=== PATIENT | female | born 1940 | race Caucasian/White ===

== ENCOUNTER 2023-07-08 17:50 | Emergency (ER) | payer MEDICARE, OTHER ==
[~2023-07-08] VITALS: Ht 157 cm; Wt 79.4 kg
[2023-07-08 18:10] LABS: BASOPHILS % (AUTO) 1 % (0-10); EOSINOPHILS # (AUTO) 0.1 10^3/uL (0.0-0.3); EOSINOPHILS % (AUTO) 1 % (0-10); HEMATOCRIT 39 % (35-52); HEMOGLOBIN 12.9 g/dL (11.5-16.0); LYMPHOCYTES # (AUTO) 1.4 10^3/uL (1.0-4.0); LYMPHOCYTES % (AUTO) 20 % (12-44); MEAN CORPUSCULAR HEMOGLOBIN 29 pg (25-34); MEAN CORPUSCULAR HGB CONC 33 g/dL (32-36); MEAN CORPUSCULAR VOLUME 89 fL (80-99); MEAN PLATELET VOLUME 10.4 fL (9.0-12.2); MONOCYTES # (AUTO) 0.4 10^3/uL (0.0-1.0); MONOCYTES % (AUTO) 6 % (0-12); NEUTROPHILS % (AUTO) 71 % (42-75); PLATELET COUNT 250 10^3/uL (130-400)
[2023-07-08] MEDS ORDERED: FAMOTIDINE 20 MG TABLET PO STA (18:11)
--- NOTE | 2023-07-08 18:11 | ED GI ---
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 This occurred at 2:20 PM today. She denies any real chest pain, shortness of breath, focal weakness or numbness, headache, vertigo, fever, diarrhea, or any other concerns. This is never really ever happened before. She specifically denies any cardiac history. This was a very brief moment that lasted less than a minute, and she was normal afterwards. Allergies and Home Medications Allergies Coded Allergies: No Known Drug Allergies (Unverified , 07/08/23) Patient Home Medication List Home Medication List Reviewed: Yes Review of Systems Review of Systems Constitutional: No fever EENTM: No Symptoms Reported Respiratory: No Symptoms Reported Cardiovascular: No Symptoms Reported Gastrointestinal: See HPI Genitourinary: No Symptoms Reported Musculoskeletal: no symptoms reported Skin: no symptoms reported Psychiatric/Neurological: No Symptoms Reported Endocrine: No Symptoms Reported Hematologic/Lymphatic: No Symptoms Reported Past [id number] Hx Patient Social History Tobacco Use?: No Past Medical History Surgeries: Yes Section, Gallbladder Physical Exam Vital Signs Vital Signs - First Documented 07/08/23 18:08 Temp 37.4 Pulse 71 Resp 16 B/P (MAP) 160/85 (110) Pulse Ox 96 O2 Delivery Room Air Capillary Refill : Height/Weight/BMI Height: '" Weight: lbs. oz. kg; BMI Method: General Appearance: WD/WN, no apparent distress HEENT: PERRL/EOMI, normal ENT inspection, pharynx normal Neck: non-tender, full range of motion, supple, normal inspection Respiratory: chest non-tender, lungs clear, normal breath sounds, no respiratory distress, no accessory muscle use Cardiovascular: regular rate, rhythm, no edema Gastrointestinal: normal bowel sounds, non tender, soft; No distended, No guarding, No rebound Extremities: normal range of motion, non-tender, normal inspection, no pedal edema, no calf tenderness, normal capillary refill Back: normal inspection, no CVA tenderness, no vertebral tenderness 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5 % Platelet Count 250 130-400 10^3/uL Mean Platelet Volume 10.4 9.0-12.2 fL Immature Granulocyte % (Auto) 1 % Neutrophils (%) (Auto) 71 42-75 % Lymphocytes (%) (Auto) 20 12-44 % Monocytes (%) (Auto) 6 0-12 % Eosinophils (%) (Auto) 1 0-10 % Basophils (%) (Auto) 1 0-10 % Neutrophils # (Auto) 5.0 1.8-7.8 10^3/uL Lymphocytes # (Auto) 1.4 1.0-4.0 10^3/uL Monocytes # (Auto) 0.4 0.0-1.0 10^3/uL Eosinophils # (Auto) 0.1 0.0-0.3 10^3/uL Basophils # (Auto) 0.0 0.0-0.1 10^3/uL Immature Granulocyte # (Auto) 0.0 0.0-0.1 10^3/uL Prothrombin Time 12.9 12.2-14.7 SEC INR Comment 0.9 0.8-1.4 Activated Partial Thromboplast Time 25 24-35 SEC Sodium Level 134 L 135-145 MMOL/L Potassium Level 4.2 3.6-5.0 MMOL/L Chloride Level 97 L 98-107 MMOL/L Carbon Dioxide Level 25 21-32 MMOL/L Anion Gap 12 5-14 MMOL/L Blood Urea Nitrogen 14 7-18 MG/DL Creatinine 0.95 0.60-1.30 MG/DL Estimat Glomerular Filtration Rate 60 BUN/Creatinine Ratio 15 Glucose Level 108 H 70-105 MG/DL Calcium Level 9.7 8.5-10.1 MG/DL Corrected Calcium 9.4 8.5-10.1 MG/DL Magnesium Level 2.3 1.6-2.4 MG/DL Total Bilirubin 0.4 0.1-1.0 MG/DL Aspartate Amino Transf (AST/SGOT) 26 5-34 U/L Alanine Aminotransferase (ALT/SGPT) 21 0-55 U/L Alkaline Phosphatase 65 40-136 U/L Troponin I < 0.30 <0.30 NG/ML Total Protein 7.1 6.4-8.2 GM/DL Albumin 4.4 3.2-4.5 GM/DL Lipase 42 8-78 U/L My Orders Orders - SOHA NEIL MD Cbc With Automated Diff (07/08/23 18:04) Comprehensive Metabolic Panel (07/08/23 18:04) Lipase (07/08/23 18:04) Magnesium (07/08/23 18:04) Protime With Inr (07/08/23 18:04) Partial Thromboplastin Time (07/08/23 18:04) Troponin I Fs (07/08/23 18:04) Ed Iv/Invasive Line Start (07/08/23 18:04) Ekg Tracing (07/08/23 18:04) Famotidine Tablet (Famotidine Tablet) (07/08/23 18:11) Ondansetron Injection (Ondansetron Inj (07/08/23 18:15) Medications Given in ED Current Medications Medications Dose Ordered Sig/Go Route Start Time Stop Time Status Last Admin Dose Admin Ondansetron HCl 4 mg ONCE ONCE IVP 07/08/23 18:15 07/08/23 18:16 DC 07/08/23 18:17 4 MG Vital Signs/I&O 07/08/23 18:08 Temp 37.4 Pulse 71 Resp 16 B/P (MAP) 160/85 (110) Pulse Ox 96 O2 Delivery Room Air Progress Progress Note : Progress Note 82-year-old female with above history coming in due to 1 episode of feeling lightheaded with an episode of nonbloody nonbilious vomiting. Boaz better within a minute. ABCs were intact and vitals were stable on presentation. Physical exam reassuring including a soft and nontender abdomen. Neuro exam completely normal. EKG ordered and interpreted by me showing a right bundle branch block and no acute ischemic changes. No prior EKG to compare to. An IV was placed and she was given Zofran as well as p.o. Pepcid. Labs were significant for normal white blood cell count, normal creatinine, negative troponin, sodium 134 which is fairly low, not significant. This does not sound like an ME type of event, and it occurred 4 hours prior to arrival here. If this was a massive ME, I would expect chest pain, continued symptoms, and a posi tive troponin. Could be a GI illness versus some other etiology. Repeat abdominal exam once again reassuring. I believe she is stable for discharge with outpatient follow-up. She was sent home with strict return precautions. She was tolerating p.o. in the ER. Initial ECG Impression Date: Jul 08, 2023 Initial ECG Impression Time: 18:02 Initial ECG Rate: 71 Initial ECG Rhythm: Normal Sinus Comment Wide QRS with a right bundle branch block, no STEMI, no prior EKG to compare to Departure Impression Primary Impression: Vomiting in adult Disposition: 01 HOME, SELF-CARE Condition: Stable Departure-Patient Inst. Decision time for Depature: 18:45 Referrals: DALIA CABAN MD (PCP) Primary Care Physician Patient Instructions: Nausea and Vomiting, Adult ED Add. Discharge Instructions: We are not seeing any evidence of heart attack or stroke while in the ER based on your exam and work-up. It is possible you are getting a GI illness and may have more vomiting. Nausea medicines were sent to your pharmacy. If you have severe chest pain or severe abdominal pain then we would want you to see a doctor LIONEL. Scripts Ondansetron (Ondansetron Odt) 4 Mg Tab.rapdis 4 MG SL Q6H PRN for NAUSEA/VOMITING for 5 Days, #20 TAB Prov: SOHA NEIL MD 07/08/23 SOHA NEIL MD Jul 08, 2023 18:11
[2023-07-08] MEDS ORDERED: ONDANSETRON INJECTION 4 MG/2 ML (SDV) IVP ONE (18:15)
[2023-07-08 18:21] LABS: INR 0.9 (0.8-1.4); PROTHROMBIN TIME PATIENT 12.9 SEC (12.2-14.7)
[2023-07-08 18:32] LABS: BILIRUBIN,TOTAL 0.4 MG/DL (0.1-1.0); BUN/CREATININE RATIO 15; CALCIUM 9.7 MG/DL (8.5-10.1); CARBON DIOXIDE 25 MMOL/L (21-32); CHLORIDE 97 MMOL/L (98-107); CREATININE SERUM 0.95 MG/DL (0.60-1.30); GFR ESTIMATED 60; GLUCOSE 108 MG/DL (70-105); MAGNESIUM 2.3 MG/DL (1.6-2.4); POTASSIUM 4.2 MMOL/L (3.6-5.0); SODIUM 134 MMOL/L (135-145)
[2023-07-08 18:33] LABS: ALANINE AMINOTRANSFERASE 21 U/L (0-55); ALBUMIN 4.4 GM/DL (3.2-4.5); ALKALINE PHOSPHATASE 65 U/L (40-136); LIPASE 42 U/L (8-78); TOTAL PROTEIN 7.1 GM/DL (6.4-8.2)
[2023-07-08 18:40] VITALS: BP 128/67
[2023-07-08] MEDS ORDERED: ONDA4TAB11 SL (18:42)
== END 2023-07-08 18:50 | disposition home or self-care (01) ==
LOC: ER FS 17:53
DX: R11.2 Nausea with vomiting, unspecified (principal); R42 Dizziness and giddiness; I45.10 Unspecified right bundle-branch block
CPT/HCPCS: 36415; 80053; 83690; 83735; 84484; 85025; 85610; 85730; 93005

== ENCOUNTER → 2023-08-02 | Outpatient (CLI) | payer MEDICARE ==
[~2023-08-02] MED LIST: ONDA4TAB11 SL
== END ==
LOC: CANPRECLI → CARD 09:59
PROVIDERS: ATTEND Family Medicine
DX: R01.1 Cardiac murmur, unspecified (principal)
CPT/HCPCS: 93320